=== PATIENT | female | born 1995 | race Caucasian/White ===

== ENCOUNTER 2016-11-04 16:53 | Emergency (ER) | payer OTHER ==
[~2016-11-04] VITALS: Ht 167.6 cm; Wt 63.6 kg
[2016-11-04 17:12] VITALS: BP 129/82; PULSE 84; RESP 18; O2SAT 100
--- NOTE | 2016-11-04 18:07 | ED.REPORT ---
HPI-Rash / Abscess Date of Service November 04, 2016 ED Provider: History of Present Illness: 21-year-old female with "bites to her bottom" for a 5 days now. The day after the lesions appeared, she felt febrile but those symptoms have been gone for 2 days now. It drained yesterday and today there was no drainage and feels a little bit better. sluice tender and erythematous. No history of the same. Not up-to-date on tetanus Nursing Notes Stated Complaint: BITE TO REAR Chief Complaint: General Complaint Nursing Notes Reviewed: Yes Allergies: Coded Allergies: No Known Allergies (Unverified , 11/04/16) Scheduled Clindamycin (Clindamycin) 150 Mg Capsule 450 MG PO TID General Time Seen by MD: 18:06 Chief Complaint Abscess Hx Obtained From: Patient Arrived By: Walk-in Onset Occurred: 5 days ago Symptom Duration: Since onset Location: : Buttock Severity: Current: Mild Severity: Maximum: Moderate Associated with: Denies Abdominal pain, Denies Fever, Denies Headache, Denies Red streaking, Denies Shaking chills Pertinent Negative: Pt denies other symptoms Similar Sx Previous: No Past Medical History Past Medical History Notes: denies Review of Systems Basic Review of Systems Hematologic: No bleeding, No bruising Psychiatric: Normal thought content Constitutional: Denies: Chills, Fatigue, Fever Respiratory: Denies: Dyspnea on exertion Cardiovascular: Denies: Chest pain GI: Denies: Abdominal pain, Nausea, Vomiting Skin: Reports Rash Complete sys rev & neg: except as marked. Physical Exam Initial Vital Signs Vital Signs (First) Date Time Temp Pulse Resp B/P Pulse Ox O2 Delivery O2 Flow Rate FiO2 11/04/16 17:12 36.1 84 18 129/82 100 Room Air Initial VS: Reviewed, Vital signs normal Head / Eyes: Atraumatic, Normocephalic, PERRL ENT: Mucous membranes moist, Conjunctiva normal, No scleral icterus Respiratory: Breath sounds normal, Clear to auscultation, No respiratory distress Cardiovascular: Regular rate & rhythm, Heart sounds normal, Intact distal pulses Abdomen / GI: Soft, Non-tender, No guarding, No rebound, No distention Neurologic: Alert, Oriented, Nonfocal Psychiatric: Mood/affect normal, Behavior normal, Normal thought content General/Constitutional: Awake, Alert, Well appearing Rash / Lesion Notes: 2 pinpoint areas of erythema/folliculitis, one on R and one on L buttocks. Larger area of erythema/tenderness of concern on lower L buttocks. mildly erythematous, approx 2 cm, no head, appears like it had drained in past. very slight induration, moderately tender. Re-Eval/Medical Decision Med Decision/Clinical Course no i&d needed Discharge & Departure Shift Change Sign-Out Response to Therapy: Improved Impression: Primary Impression: Abscess of left buttock Disposition: Home Discharge Condition All VS Reviewed: Yes Condition: Stable Patient Instructions: Abscess (ED) Additional Instructions: Keep area clean, you may do warm Epsom salt baths once or twice a day. Watch for worsening signs of infection including increasing redness or increasing pain or swelling. Return immediately if this occurs. Taken antibiotics as prescribed. Tylenol or ibuprofen for pain. EDSupervising Provider for APC: Herb Erazo Linnea K ARNP November 04, 2016 18:06
[2016-11-04] MEDS ORDERED: TdaP Vaccine 0.5 mL Inj IM ONE (18:25)
[2016-11-04] MEDS ORDERED: CLIN-77 PO (18:52)
== END 2016-11-04 19:06 | disposition home or self-care (01) ==
LOC: SED 16:53
DX: L02.31 Cutaneous abscess of buttock (principal); W57.XXXA Bitten or stung by nonvenomous insect and other nonvenomous arthropods, initial encounter; Y93.9 Activity, unspecified; Y92.9 Unspecified place or not applicable; Y99.9 Unspecified external cause status; Z23 Encounter for immunization